=== PATIENT | male | born 1970 | race Caucasian/White ===

== ENCOUNTER 2020-01-13 16:46 | Inpatient (IN) | payer OTHER, SELFPAY ==
[2020-01-13 16:58] VITALS: BP 146/90; PULSE 104; RESP 18; TEMP 36.7; O2SAT 94; BMI 39.5
--- NOTE | 2020-01-13 17:51 | ECG_ITS ---
Measurements Intervals [place] Rate: 86 P: -13 MN: 144 QRS: 19 QRSD: 96 T: 59 QT: 348 QTc: 417 SINUS RHYTHM No previous ECG available for comparison Electronically Signed On 01-14-2020 19:04:15 CDT by Princess Brown M.D. [email or web address]
--- NOTE | 2020-01-13 17:51 | USR_ITS ---
PROCEDURE INFORMATION: Exam: US Abdomen Complete Exam date and time: 01/13/2020 6:14 PM Age: 49 years old Clinical indication: Abdominal pain; Other: Across abdomen TECHNIQUE: Imaging protocol: Real-time ultrasound of the abdomen with image documentation. COMPARISON: No relevant prior studies available. FINDINGS: Liver: The liver is echogenic with attenuation of the ultrasound beam compatible with probable fatty infiltration. Gallbladder: No gallstones or sludge are identified. There are multiple folds in the gallbladder. The gallbladder wall measures 1.8 mm in thickness. There is a negative sonographic Nunes's sign. Common bile duct: The common bile duct is not visualized due to bowel gas artifact. Pancreas: The pancreas is also partially obscured by bowel gas artifact but the visualized pancreas is mildly echogenic compatible probable fatty infiltration but otherwise unremarkable. Right kidney: The right kidney is unremarkable and measures 13.4 cm in length. There are no stones or hydronephrosis. Left kidney: The left kidney is unremarkable and measures 11.9 cm in length. Spleen: The spleen is unremarkable and measures 11.9 cm in length. Probable calcified granulomas are noted in the spleen. Aorta: The aorta is obscured by bowel gas artifact. Inferior vena cava: The inferior vena cava is unremarkable. Intraperitoneal space: No free fluid. US/US abdomen complete* [id number] IMPRESSION: 1. No acute abnormality. There is no cholelithiasis or findings of acute cholecystitis. 2. There is bowel gas artifact which limits the visualization of the common bile duct and aorta. 3. Probable fatty infiltration liver.
--- NOTE | 2020-01-13 17:53 | ED_ITS ---
HPI - Abdominal Pain General: Chief Complaint: Abdominal Pain Stated Complaint: abd pain and distention, N/V Time Seen by Provider: 01/13/20 17:47 History of Present Illness: HPI narrative: Angelo is a nice 49-year-old male who comes in complaining of upper abdominal pain. His pain began this morning upon awakening. He said associated nausea and vomiting. He has vomited 3 times. He continues to feel nauseated. His pain is described as a dull aching pain and it is intermittent. He is unaware of anything that makes his symptoms better or worse. He is not tried any food or drink secondary to his persistent nausea. He denies any chest pain or shortness of breath, fevers or chills, cough or shortness of breath. He denies any ill contacts. Patient does say that he gets relief of his pain when he vomits but the nausea is persistent. Associated Symptoms: Reports nausea and vomiting; Denies chills, coffee ground emesis, constipation, GI cramping, diarrhea, dysu sonya, fever(s), heartburn, hematochezia, hematuria, hematemesis, melena and syncope Review of Systems Const: Denies: fever(s), chills, body aches, fatigue, malaise or diaphoresis Eyes: Denies: change in vision, blurry vision, blind spots or photophobia ENMT: Denies: throat pain, odynophagia, hoarseness, swelling of lips/tongue, ear or mastoid pain, ear discharge, change in hearing or nasal discharge Card: Denies: chest pain, palpitations, irregular heart rhythm, edema, lightheadedness, syncope, pre-syncope, dyspnea on exertion or orthopnea Resp: Denies: dyspnea, productive cough, non-productive cough, wheezing, hemoptysis or chest congestion GI: Reports: abdominal pain, nausea and vomiting; Denies: hematemesis, coffee ground emesis, heartburn, diarrhea, constipation, GI cramping, hematochezia or melena : Denies: flank pain, dysuria, urinary frequency, urinary urgency or hematuria Musc: Denies: neck pain, back pain, extremity pain, extremity swelling, joint pain, joint swelling, joint redness, joint warmth or joint stiffness Skin/Breast: Denies: rash, pruritus, erythema, skin tenderness or jaundice Neuro: Denies: headache(s), numbness in extremities, weakness in extremities, sensory changes, lack of coordination, difficulty walking, dizziness, vertigo, confusion or Slurred speech present Margarito/Lymph: Denies: easy bruising, easy bleeding, petechiae, purpura or enlarged lymph nodes All/Imm: Denies: urticaria, throat swelling, tongue swelling, facial swelling or acute wheezing PFSH ED PFSH: Medical History Anxiety Obesity Obstructive sleep apnea Surgical History H/O neck surgery H/O shoulder surgery Family History Denies family history of Diabetes Dementia Psychiatric illness Social History (Updated 01/13/20 @ 22:12 by Princess Mendoza MD) Smoking and tobacco status: current every day smoker cigarettes Alcohol intake: never Substance/Drug Use: never Household members: spouse Housing: House Physical Exam Const: COMMON NORMALS: no acute distress, patient oriented x3, no limitations, healthy appearing and well nourished GENERAL APPEARANCE: cooperative, well kempt and well developed HENMT: COMMON NORMALS: normocephalic, atraumatic, external ears normal, EAC's normal and Normal external nose present HEAD & SCALP: normal to inspection, normocephalic and atraumatic FACE & SINUS: normal facial exam and face symmetric NOSE: Normal external nose present and Normal nares present EXTERNAL EAR: Yes external ears normal EXTERNAL AUDITORY CANAL: EAC's normal MOUTH: Normal oral and palatal mucosa present, lip normal and tongue normal Eye: COMMON NORMALS: Equal, round and reactive pupils present and conjunctivae normal GENERAL EYE: appearance normal, both eyes and all related structures ALIGNMENT: Yes alignment normal PERIORBITAL: periorbital findings normal EYELID: eyelids normal CONJUNCTIVA: Yes conjunctivae normal SCLERA: sclerae normal PUPIL: Yes Equal, round and reactive pupils present Neck/C-Spine: COMMON NORMALS: full ROM, no lymphadenopathy, supple, no meningeal signs and no JVD GENERAL: Yes normal visual inspection and Yes trachea midline Chest: COMMONS NORMALS: normal inspection of the chest and normal palpation of entire chest wall Resp: COMMON NORMALS: normal respiratory effort, No retractions and No use of accessory muscles EFFORT & INSPECTION: Yes able to speak in complete sentences and Yes symmetric chest movement AUSCULTATION: no crackles, no rales, no rhonchi and no wheezes Cardio: COMMON NORMALS: no JVD, regular rate, regular rhythm, S1 normal heart sound present and S2 normal heart sound present RATE: regular rate RHYTHM: regular rhythm HEART SOUNDS: S1 normal heart sound present, S2 normal heart sound present, no click, no gallops, no murmurs, no rubs and abnormal split S2 GI: COMMON NORMALS: Soft to palpation and No hepatosplenomegaly present PALPATION: Yes Soft to palpation, No Guarding due to palpation present (GI), No Rigid due to palpation, Yes No hepatosplenomegaly present, No Hernia present, No Palpable mass present and No Pulsatile mass present : COMMON NORMALS: Yes no CVA tenderness BLADDER/KIDNEY EXAM: Yes no CVA tenderness Back/Pelvis: COMMON NORMALS: no CVA tenderness, thoracic and lumbar spine normal to inspection, no thoracic nor lumbar tenderness and thoraco-lumbar ROM normal Extremity: COMMON NORMALS: normal to inspection, full ROM, capillary refill normal, no joint enlargement, no clubbing, cyanosis or edema and no calf tenderness Neuro: COMMON NORMALS: patient oriented x3, CN's II-XII intact bilaterally, moves all extremities, no focal motor deficits and no sensory deficits noted MENINGEAL SIGNS: Yes no meningeal signs SPEECH: speech normal Psych: COMMON NORMALS: mental status grossly normal, Normal thought process present, cooperative, normal affect, speech normal and activity/motor behavior normal APPEARANCE: Yes well kempt SPEECH: Yes normal speech THOUGHT PROCESS: Normal thought process present Skin: COMMON NORMALS: no rashes or lesions noted, turgor normal, no jaundice, no petechiae and no mottling GENERAL SKIN EXAM: no rashes or lesions noted and turgor normal Course Vital Signs: Vital signs: Vital Signs Temperature 98.8 F 01/13/20 22:17 Pulse Rate 109 H 01/13/20 22:17 Respiratory Rate 24 H 01/13/20 22:17 Blood Pressure 160/91 01/13/20 22:17 Pulse Oximetry 91 01/13/20 22:17 MDM - Abdominal Pain MDM Narrative: Medical decision making narrative: Arrival -Mr. Mariel is a 49-year-old male who comes in with less than 12 hours of upper abdominal pain. His vital signs are stable other than a mild tachycardia he denies any chest pain or shortness of breath. Denies any fevers or chills or other alarming associated symptoms. The differential is considerable including atypical acute coronary syndrome, bowel obstruction, pancreatitis, gallbladder disease, ap pendicitis among many others. Elevation make my work-up at relieving his pain and evaluating for a cardiac and GI source for his symptoms. We will reevaluate and work-up and evaluate further based upon test results and response to therapy. Admission -the case was reviewed with Drs. Mendoza and Sara, they will admit and consult respectively. Patient will have NG tube placed with low intermittent s uction. It is unclear what is causing this bowel obstruction as the patient had no surgery before. Currently he has repeat abdominal exam reveals no sign of peritonitis. Lab Data: Attestation: I reviewed the patient's lab results. Labs: Lab Results 01/13/20 01/13/20 01/13/20 Range/Units 17:45 17:45 17:45 WBC 14.8 H (4.0-10.0) 10^3/ uL RBC 5.79 H (4.1-5.3) 10^6/u L Hgb 17.8 H (11.7-16.6) g/dL Hct 53.9 H (42.0-52.0) % MCV 93.1 (80-94) fL MCH 30.7 (28.0-34.0) pg MCHC 33.0 (30.0-36.0) g/dL RDW 13.4 (12.1-15.1) % Plt Count 309 (130-400) 10^3/c mm MPV 9.8 (7.4-10.4) fL Neut % (Auto) 80.4 % Lymph % (Auto) 13.0 % [place] % (Auto) 5.6 % Eos % (Auto) 0.3 % Baso % (Auto) 0.3 % Neut # (Auto) 11.9 H (1.8-7.7) 10^3/u L Lymph # (Auto) 1.9 (0.8-4.8) 10^3/u L [place] # (Auto) 0.8 (0.2-0.9) 10^3/u L Eos # (Auto) 0.0 (0.0-0.8) 10^3/u L Baso # (Auto) 0.0 (0.0-0.1) 10^3/u L Nucleated RBC % (a uto) 0 % Nucleated RBCs # 0.0 /100WBC Sodium 138 (136-145) mmol/L Potassium 4.6 (3.5-5.1) mmol/L Chloride 98 (98-107) mmol/L Carbon Dioxide 28 (22-29) mmol/L Anion Gap 16.6 (5-19) BUN 14 (6-20) mg/dL Creatinine 1.1 (0.7-1.2) mg/dL GFR Calculation 71.8 L (90-130) mL/min Glucose 101 (65-115) mg/dL Calculated Osmolal ity 282 L (285-295) mOsm/k g Lactic Acid (0.5-2.2) mmol/L Calcium 9.9 (8.5-10.5) mg/dL Total Bilirubin 0.6 (0.15-1.2) mg/dL AST 22 (0-40) U/L ALT 33 (0-41) U/L Alkaline Phosphata se 75 (40-130) IU/L Troponin T Baselin e 7 (0-15) ng/L Troponin T 120 Min you (0-15) ng/L Delta Troponin T (0-10) ABS# Total Protein 7.7 (6.6-8.7) g/dL Albumin 5.0 (3.5-5.2) g/dL Globulin 2.7 (1.3-4.6) g/dL Lipase 18 (13-60) U/L Urine Color (Yellow) Urine Appearance (CLEAR) Urine pH (5-7) Ur Specific Gravit y (1.005-1.030) Urine Protein (Negative) Urine Glucose (UA) (Normal) Urine Ketones (Negative) Urine Blood (Negative) Urine Nitrate (Negative) Urine Bilirubin (NEGATIVE) Urine Urobilinogen (Negative) mg/dL Ur Leukocyte Eva ase (Negative) Urine RBC (0-2) /hpf Urine WBC (0-5) /hpf Ur Squamous Epith Cells (0-5) Urine Bacteria (NONE) Urine Mucus 0601/13/20 01/13/20 Range/Units 20:14 20:35 21:00 WBC (4.0-10.0) 10^3/ uL RBC (4.1-5.3) 10^6/u L Hgb (11.7-16.6) g/dL Hct (42.0-52.0) % MCV (80-94) fL MCH (28.0-34.0) pg MCHC (30.0-36.0) g/dL RDW (12.1-15.1) % Plt Count (130-400) 10^3/c mm MPV (7.4-10.4) fL Neut % (Auto) % Lymph % (Auto) % [place] % (Auto) % Eos % (Auto) % Baso % (Auto) % Neut # (Auto) (1.8-7.7) 10^3/u L Lymph # (Auto) (0.8-4.8) 10^3/u L [place] # (Auto) (0.2-0.9) 10^3/u L Eos # (Auto) (0.0-0.8) 10^3/u L Baso # (Auto) (0.0-0.1) 10^3/u L Nucleated RBC % (a uto) % Nucleated RBCs # /100WBC Sodium (136-145) mmol/L Potassium (3.5-5.1) mmol/L Chloride (98-107) mmol/L Carbon Dioxide (22-29) mmol/L Anion Gap (5-19) BUN (6-20) mg/dL Creatinine (0.7-1.2) mg/dL GFR Calculation (90-130) mL/min Glucose (65-115) mg/dL Calculated Osmolal ity (285-295) mOsm/k g Lactic Acid 1.8 (0.5-2.2) mmol/L Calcium (8.5-10.5) mg/dL Total Bilirubin (0.15-1.2) mg/dL AST (0-40) U/L ALT (0-41) U/L Alkaline Phosphata se (40-130) IU/L Troponin T Baselin e (0-15) ng/L Troponin T 120 Min you 6.91 (0-15) ng/L Delta Troponin T -0.09 L (0-10) ABS# Total Protein (6.6-8.7) g/dL Albumin (3.5-5.2) g/dL Globulin (1.3-4.6) g/dL Lipase (13-60) U/L Urine Color Yellow (Yellow) Urine Appearance Clear (CLEAR) Urine pH 7 (5-7) Ur Specific Gravit y 1.010 (1.005-1.030) Urine Protein Neg (Negative) Urine Glucose (UA) Norm (Normal) Urine Ketones 1+ H (Negative) Urine Blood Neg (Negative) Urine Nitrate Negative (Negative) Urine Bilirubin 1+ H (NEGATIVE) Urine Urobilinogen 1 H (Negative) mg/dL Ur Leukocyte Eva ase Negative (Negative) Urine RBC 0-4 H (0-2) /hpf Urine WBC 0-4 H (0-5) /hpf Ur Squamous Epith Cells 0-4 H (0-5) Urine Bacteria Trace (NONE) Urine Mucus 1+ EKG Data ^: EKG 1: Attestation: I personally reviewed and interpreted this EKG as follows: EKG interpretation date: 01/13/20 EKG interpretation time: 18:27 Interpretation: Normal sinus rhythm at 86 beats a minute, incomplete right bundle branch block, no acute ST or T wave changes. EKG 2: Attestation: I personally reviewed and interpreted this EKG as follows: EKG interpretation date: 01/13/20 EKG interpretation time: 20:25 Interpretation: Normal sinus rhythm at 95 beats a minute, no acute ST or T wave changes. Discharge Plan Discharge Patient Disposition: Admitted As Inpatient Admit Provider: Princess Mendoza Clinical Impression: Partial small bowel obstruction Condition: Stable Discharge Date/Time: 01/13/20 22:34 Coding Level of Care Code ED Agile Scrum Coach for Chg Fwd Exam Comprehensive
[2020-01-13 17:55] LABS: Basophils % 0.3 %; Eosinophils % 0.3 %; Hematocrit 53.9 % (42.0-52.0); Hemoglobin 17.8 g/dL (11.7-16.6); Lymphocytes # 1.9 10^3/uL (0.8-4.8); Mean Corpuscular Hemoglobin 30.7 pg (28.0-34.0); Mean Corpuscular Volume 93.1 fL (80-94); Mean Platelet Volume 9.8 fL (7.4-10.4); Monocytes # 0.8 10^3/uL (0.2-0.9); Monocytes % 5.6 %; Neutrophils # 11.9 10^3/uL (1.8-7.7); Neutrophils % 80.4 %; Nucleated Red Blood Cells % 0 %; Platelet Count 309 10^3/cmm (130-400); Red Blood Count 5.79 10^6/uL (4.1-5.3); Red Cell Distribution Width 13.4 % (12.1-15.1); White Blood Count 14.8 10^3/uL (4.0-10.0)
[2020-01-13] MEDS: morphine 4 mg/mL SDV 1 mL IVP (18:03)
[2020-01-13] MEDS: ondansetron 2 mg/ML SDV 2 mL 4 MG IVP (18:03)
[2020-01-13 18:11] VITALS: BP 151/109; RESP 20; O2SAT 92
[2020-01-13 18:15] LABS: Alanine Aminotransferase 33 U/L (0-41); Alkaline Phosphatase 75 IU/L (40-130); Anion Gap 16.6 (5-19); Aspartate Amino Transferase 22 U/L (0-40); Blood Urea Nitrogen 14 mg/dL (6-20); Calcium 9.9 mg/dL (8.5-10.5); Carbon Dioxide 28 mmol/L (22-29); Chloride 98 mmol/L (98-107); Globulin 2.7 g/dL (1.3-4.6); Glomerular Filtration Rate 71.8 mL/min (90-130); Glucose 101 mg/dL (65-115); Lipase 18 U/L (13-60); Osmolality Calculated 282 mOsm/kg (285-295); Potassium 4.6 mmol/L (3.5-5.1); Sodium 138 mmol/L (136-145); Total Bilirubin 0.6 mg/dL (0.15-1.2); Total Protein 7.7 g/dL (6.6-8.7)
[2020-01-13 18:19] LABS: Troponin(5th) Baseline 7 ng/L (0-15)
--- NOTE | 2020-01-13 18:53 | CTR_ITS ---
PROCEDURE INFORMATION: Exam: CT Abdomen And Pelvis With Contrast Exam date and time: 01/13/2020 7:24 PM Age: 49 years old Clinical indication: Abdominal pain; Localized; Patient HX: C/O upper abd pain w n/v and distention TECHNIQUE: Imaging protocol: Computed tomography of the abdomen and pelvis with intravenous contrast. Radiation optimization: All CT scans at this facility use at least one of these dose optimization techniques: automated exposure control; mA and/or kV adjustment per patient size (includes targeted exams where dose is matched to clinical indication); or iterative reconstruction. Contrast material: OMNI 350; Contrast volume: 95 ml; Contrast route: 18G; COMPARISON: US abdomen complete* [id number] 01/13/2020 6:28 PM RADIATION DOSE METRICS: Total DLP: 2051.6 mGy-cm FINDINGS: Mediastinal space: A small hiatal hernia is present. Liver: There is a diffuse decrease in hepatic parenchymal density, consistent with fatty infiltration. Gallbladder and bile ducts: Normal. No calcified stones. No ductal dilation. Pancreas: Normal. No ductal dilation. Spleen: There is a probable hemangioma in the spleen with peripheral enhancement measures 1.6 cm in size. Adrenals: Normal. No mass. Kidneys and ureters: There is no evidence of hydronephrosis. There is punctate right nephrolithiasis. Stomach and bowel: There are dilated loops of small bowel with air-fluid levels compatible with a mild partial small bowel obstruction. The greatest transverse measurement of the dilated loops of small bowel is 4.7 cm. The stomach is distended with fluid and air. There is no bowel thickening. No inflammatory changes. The dilated loops of small bowel have an abrupt caliber change suggestive of adhesions. No wall thickening. Appendix: A normal appendix is identified. Intraperitoneal space: There is no pneumatosis or free air. Vasculature: Unremarkable.No abdominal aortic aneurysm. Lymph nodes: Unremarkable.No enlarged lymph nodes. Bladder: There is nonspecific bladder wall thickening. This may be related to incomplete distention. Reproductive: The prostate demonstrates mild nonspecific enlargement. The seminal vesicles are normal. Bones/joints: There are moderate degenerative changes in the spine. No acute bony abnormality. Soft tissues: There is a nonobstructing left inguinal hernia. CT/CT abdomen pelvis w con* [id number] IMPRESSION: Partial small bowel obstruction with abrupt transition zone suspected to be due to adhesions. No fluid collection or free air. Radiation Dose CTDIVOL = (mGy): DLP = 2051.6 (mGy-cm)
[2020-01-13] MEDS: iohexol 300 mg/mL 100 mL Btl IV (19:50)
--- NOTE | 2020-01-13 19:51 | ECG_ITS ---
Measurements Intervals [place] Rate: 95 P: 63 ME: 153 QRS: 42 QRSD: 101 T: 63 QT: 333 QTc: 419 SINUS RHYTHM No previous ECG available for comparison Electronically Signed On 01-14-2020 19:07:02 CDT by Princess Brown M.D. [id number]
--- NOTE | 2020-01-13 20:16 | XRR_ITS ---
PROCEDURE INFORMATION: Exam: XR Chest, 1 View Exam date and time: 01/13/2020 9:42 PM Age: 49 years old Clinical indication: Device placement; Ng tube; Patient HX: Sbo - ng placement; Additional info: Ng tube placement TECHNIQUE: Imaging protocol: XR of the chest Views: 1 view. COMPARISON: No relevant prior studies available. FINDINGS: Tubes, catheters and devices: There is an orogastric tube with tip off the film. Lungs: There is shallow inspiration with bibasilar volume loss. There is mild vascular congestion/interstitial edema. No lobar consolidation. Pleural space: Unremarkable. No pleural effusion. No pneumothorax. Heart/Mediastinum: The heart is enlarged. Bones/joints: No acute abnormality. XR/XR chest 1V portable [id number] IMPRESSION: 1. There is an orogastric tube with tip off the film. 2. There is shallow inspiration with bibasilar volume loss. Mild vascular congestion.
[2020-01-13 20:36] LABS: Troponin 5 2HR 6.91 ng/L (0-15)
[2020-01-13 20:43] VITALS: BP 152/99; PULSE 96; RESP 20; O2SAT 95
[2020-01-13 20:43] LABS: Troponin 5 2HR Delta -0.09 ABS# (0-10)
[2020-01-13 21:08] LABS: Bilirubin Urine 1+ (NEGATIVE); Blood Urine Neg (Negative); Glucose Urine UA Norm (Normal); Ketones Urine 1+ (Negative); Leukocyte Esterase Urine Negative (Negative); Nitrate Urine Negative (Negative); Protein Urine Neg (Negative); RBC Urine 0-4 /hpf (0-2); Urine Appearance Clear (CLEAR); Urine Color Yellow (Yellow); Urobilinogen Urine 1 mg/dL (Negative); WBC Urine 0-4 /hpf (0-5); pH Urine 7 (5-7)
--- NOTE | 2020-01-13 21:08 | P.HP_ITS ---
Providers/Chief Complaint Chief Complaint: n/v, upper abd pain History of Present Illness Angelo Floyd is a 49 year old male who does not have significant past medical history came in with chief complaint of epigastric discomfort. Patient denies any previous abdominal surgeries. He uses BiPAP for his sleep apnea, he is visiting [place]. Today around 9 AM after eating [employer] breakfast he started experiencing excessive burping, epigastric discomfort, this was associated with recurrent episodes of bilious emesis, he was not able to take anything down. He decided to come to ED for the further evaluation. Diagnostics in the ER revealed partial small bowel obstruction. Lactic acid is normal. NG tube was placed which drained 300 to 400 cc in half an hour. Patient is endorsing passing flatus, he has never experienced small obstruction before, no history of inflammatory bowel disease. He is denying night sweats, weight loss or family history of GI cancers. Hemodynamically he is stable, afebrile, normal lactic acid, CT revealing partial bowel obstruction with abrupt transition point, EKG showing sinus rhythm, No signs of peritonitis on clinical exam Review of Systems Const: Denies: fever(s), chills or body aches Eyes: Denies: change in vision ENMT: Denies: throat pain Card: Denies: chest pain Resp: Denies: dyspnea GI: Reports: abdominal pain, nausea, vomiting, early satiety and bloating; Denies: diarrhea or constipation : Denies: flank pain Musc: Denies: neck pain Skin/Breast: Denies: rash Neuro: Denies: headache(s) Psych: Reports: anxiety and depression Endo: Denies: polyuria Margarito/Lymph: Denies: easy bruising All/Imm: Denies: urticaria Medications/Allergies Home Medications Medication Instructions Recorded Confirmed Last Taken Type Gas-X See Rx Instructions .ROUTE .COMPLEX 01/13/20 01/13/20 01/13/20 History aripiprazole 7.5 mg PO DAILY 01/13/20 01/13/20 01/12/20 History bupropion HCl 150 mg PO DAILY 01/13/20 01/13/20 01/12/20 History duloxetine 60 mg PO DAILY 01/13/20 01/13/20 01/12/20 History lamotrigine 50 mg PO BID 01/13/20 01/13/20 01/12/20 History Allergies Allergy/AdvReac Type Severity Reaction Status Date / Time No Known Allergies Allergy Verified 01/13/20 17:02 PFSH Acute PFSH: Medical History Anxiety Obesity Obstructive sleep apnea Surgical History H/O neck surgery H/O shoulder surgery Family History Denies family history of Diabetes Dementia Psychiatric illness Social History Smoking and tobacco status: current every day smoker cigarettes Alcohol intake: never Substance/Drug Use: never Household members: spouse Housing: House Vitals/I&O/Wt Last Vital Signs Temp 98.0 F 01/13/20 16:58 Pulse 96 01/13/20 20:43 Resp 20 H 01/13/20 20:43 BP 152/99 01/13/20 20:43 Pulse Ox 95 01/13/20 20:43 Weight last 48 hrs Weight 136.078 kg Physical Exam Narrative: EXAM NARRATIVE: Head to toe examination Patient sitting comfortably in his bed with nasogastric tube draining 300 400 cc bilious content No active bleeding Patient is able to provide above-mentioned HPI S1, S2 sinus tachycardia Hypertension Abdomen soft nontender nondistended bowel sounds sluggish but present No signs of peritonitis Lungs are clear to auscultation Neurological nonfocal exam EOMI, PERRLA No lower extremity edema No signs of dehydration Data : 01/13/20 17:45 01/13/20 17:45 A&P Assessment and plan (1) Partial small bowel obstruction: Status: Acute (2) Obesity: Status: Acute (3) Leukocytosis: Status: Acute Additional A&P Information Partial small obstruction acute onset No previous history of surgery No history of family GI cancer No active signs of peritonitis Patient is able to pass flatus NG tube draining 300-400 cc bilious content KUB in the morning Conservative management General surgery consult Leukocytosis without active sepsis at admission He is dehydrated as well he is tachycardic with distress leukocytosis, he is afebrile, no source of infection 95 Heart rate responsive to fluid resuscitation, Obesity with severe apnea requiring BiPAP Would avoid using BiPAP for now because of current NG tube usage Chronic smoker: Patient had decided to quit, not asking for nicotine replacement therapy at the moment Depression/anxiety: Hold antidepressant Full code DVT prophylaxis: Would avoid if he needs any surgical intervention N.p.o. Attestations Medical Necessity Statement*: Anticipating stay in the hospital cross more than 2 midnights currently needs conservative management for partial small obstruction, hospital course depends on his clinical progress Time Spent in Patient Care: 60 Coding Level of Care Code Acute Building Equipment Inspector for g Fwd Diagnoses Partial small bowel obstruction K56.600 Obesity E66.9 Leukocytosis D72.829
[2020-01-13 21:09] LABS: Add Urine Culture? No; Bacteria Urine TRACE; Mucus Urine 1+; Squamous Epithelial Cell Urine 0-4 (0-5)
[2020-01-13 21:22] LABS: Lactic Sepsis W/Reflex 1.8 mmol/L (0.5-2.2)
[2020-01-13 22:17] VITALS: BP 160/91; PULSE 109; RESP 24; TEMP 37.1; O2SAT 91
[2020-01-13] MEDS: dextrose 5%-sod chloride 0.45% 1,000 ML 75 ML IV (22:47)
[2020-01-14] VITALS (7 sets, daily range): BP systolic 125–158; BP diastolic 73–83; PULSE 67–91; RESP 18–20; TEMP 36.8–37.2; O2SAT 92–95
[2020-01-14 00:01] LABS: Troponin 5 6HR 7.36 ng/L (0-15); Troponin 5 6HR Delta 0.36 ng/L (0-12)
[2020-01-14 05:29] LABS: Basophils % 0.1 %; Eosinophils % 0.4 %; Hematocrit 45.5 % (42.0-52.0); Lymphocytes # 2.4 10^3/uL (0.8-4.8); Lymphocytes % 23.6 %; Mean Corpuscular Hemoglobin 31.1 pg (28.0-34.0); Mean Corpuscular Volume 94.2 fL (80-94); Mean Platelet Volume 9.6 fL (7.4-10.4); Monocytes # 0.8 10^3/uL (0.2-0.9); Monocytes % 7.5 %; Neutrophils % 68.1 %; Nucleated Red Blood Cells % 0 %; Platelet Count 248 10^3/cmm (130-400); Red Blood Count 4.83 10^6/uL (4.1-5.3); Red Cell Distribution Width 13.7 % (12.1-15.1); White Blood Count 10.2 10^3/uL (4.0-10.0)
[2020-01-14 05:44] LABS: Blood Urea Nitrogen 12 mg/dL (6-20); Calcium 9.3 mg/dL (8.5-10.5); Carbon Dioxide 29 mmol/L (22-29); Chloride 101 mmol/L (98-107); Glomerular Filtration Rate 90.4 mL/min (90-130); Glucose 120 mg/dL (65-115); Osmolality Calculated 287 mOsm/kg (285-295); Sodium 140 mmol/L (136-145)
--- NOTE | 2020-01-14 07:00 | XRR_ITS ---
PROCEDURE INFORMATION: Exam: XR Abdomen, 1 View Exam date and time: 01/14/2020 7:55 AM Age: 49 years old Clinical indication: Abdominal pain; Additional info: Partial small bowel obstruction TECHNIQUE: Imaging protocol: XR of the abdomen. Views: Frontal supine view of the abdomen. 1 View. COMPARISON: CT ABDOMEN/PELVIS 01/13/2020 7:41 PM FINDINGS: Tubes, catheters and devices: There is an enteric tube present with the tip in the gastric fundus. Gastrointestinal tract: No dilated gas-filled loops of bowel. Bones/joints: No acute osseous abnormality. XR/XR KUB [id number] IMPRESSION: No sign of bowel obstruction.
--- NOTE | 2020-01-14 07:18 | P.CONIM_ITS ---
Providers/Reason For Consult Consulting Physican/Specialty*: General Surgery Ochoa Ruiz MD Reason for Consult*: Small bowel obstruction. Attending Physician: Princess Mendoza MD History of Present Illness History of Present Illness Angelo Floyd is a 49 year old male who awoke yesterday morning with some epigastric discomfort. He initially thought that he was just somewhat distended and sore from wearing his BiPAP mask during the night. He ate breakfast and the pain intensified. He ended up having multiple episodes of emesis. He came to the emergency room and a CAT scan showed changes consistent with a possible small bowel obstruction. The patient has no history of any abdominal surgery. The patient has never had this happen to him before. He has not eaten anything out of the ordinary recently, and those around him who have eaten the same things did not become ill. He says he never did stop passing flatus and he has continued to pass flatus in the hospital. He says he was actually already starting to feel better by the time the nasogastric tube was placed last night. He says his bowel function has been completely normal for him recently. He has never had a colonoscopy. He has no known family history of any intestinal problems. Review of Systems General: Reports: 10 or more systems reviewed and unremarkable except in HPI and below Const: Denies: fever(s) Psych: Reports: depression Meds/Allergies Home Medications and Allergies Home Medications Medication Instructions Recorded Confirmed Last Taken Type Gas-X See Rx Instructions .ROUTE .COMPLEX 01/13/20 01/13/20 01/13/20 History aripiprazole 7.5 mg PO DAILY 01/13/20 01/13/20 01/12/20 History bupropion HCl 150 mg PO DAILY 01/13/20 01/13/20 01/12/20 History duloxetine 60 mg PO DAILY 01/13/20 01/13/20 01/12/20 History lamotrigine 50 mg PO BID 01/13/20 01/13/20 01/12/20 History Allergies Allergy/AdvReac Type Severity Reaction Status Date / Time No Known Allergies Allergy Verified 01/13/20 17:02 Current Medications Current Medications Generic Name Dose Route Start Last Admin Trade Name Freq PRN Reason Stop Dose Admin Dextrose/Sodium Chloride 1,000 mls @ 150 mls/hr 01/13/20 22:30 01/13/20 22:47 Dextrose 5%-Sod Chloride 0.45% IV 75 mls/hr .Q6H40M HONORIO Administration PFSH Acute PFSH: Medical History (Updated 01/14/20 @ 07:22 by Ochoa Ruiz MD) Anxiety Depression Obesity Obstructive sleep apnea Surgical History (Updated 01/14/20 @ 07:22 by Ochoa Ruiz MD) H/O neck surgery Removal of a cyst from the right side of the neck; they had to reoperate on it like 7 times because it kept coming back H/O shoulder surgery Right History of hand surgery Right hand fifth digit tendon repair secondary to trauma Family History Denies family history of Diabetes Dementia Psychiatric illness Social History (Updated 01/14/20 @ 07:23 by Ochoa Ruiz MD) Smoking and tobacco status: current every day smoker cigarettes Packs smoked per day: 1 Years cigarettes smoked: 35 Alcohol intake: current Alcohol use comment: Seldom Substance/Drug Use: never Household members: spouse Housing: House Vitals/I&O/Wt Last Vital Signs Temp 99.0 F 01/14/20 04:13 Pulse 89 01/14/20 04:13 Resp 20 H 01/14/20 04:13 BP 137/81 01/14/20 04:13 Pulse Ox 93 01/14/20 04:13 01/13/20 01/14/20 01/14/20 22:59 06:59 14:59 Output Total 680 / 680 Balance -680 / -680 Weight last 48 hrs Weight 300 lb Physical Exam Narrative: EXAM NARRATIVE: The patient was encountered in his hospital room. He has a nasogastric tube in place that has been draining dark brown material, but nothing appears to be continuously draining now. The pupils are equal. No carotid bruits are heard. The lungs are clear anteriorly. The heart is regular. The abdomen is obese but is soft and completely nontender. Bowel sounds are present but may be slightly hypoactive. No abdominal scars are noted. The extremities reveal no significant edema. Neurologically the patient appears to be grossly intact. Data Imaging^: CT Abd/Pel: Radiologist's impression: CT abdomen/pelvis 01/13/2020 iMPRESSION: Partial small bowel obstruction with abrupt transition zone suspected to be due to adhesions. No fluid collection or free air. A&P Assessment and plan (1) Partial small bowel obstruction: CT reviewed. The patient appears to have somewhat of a transition point in the epigastrium just to the left side of midline. He has air throughout his colon. The patient is feeling much better this morning. He continues to pass flatus. I am going to clamp his NG tube and see how he does over the next few hours. Status: Acute Consult Attestations Medical Necessity Statement: See admitting service's notation. 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
--- NOTE | 2020-01-14 07:48 | PC.NURSE ---
Verbal order received from Dr. Ruiz to clamp NG tube, tube clamped at [id number]
[2020-01-14] MEDS: pantoprazole 40 mg SDV IVP (08:56)
[2020-01-14] MEDS: heparin 5,000 unit/mL INJ 1 mL 5000 UNIT SUBCUT ×2 (08:56→20:07)
[2020-01-14] MEDS: phenol oral Spray 177 mL 3 SPRAY MUCOUS MEM (09:44)
--- NOTE | 2020-01-14 10:41 | P.PN_ITS ---
Subjective Subjective: Interval history: Admitted overnight. H&P and labs noted. Today morning patient was not having any nausea, vomiting and was passing flatus so NG tube was clamped. Patient was seen by Dr. Ruiz. Since clamping of NG tube patient has not had any further nausea or vomiting. He denies of having any chest pain, diarrhea, fever, palpitations. Vitals/I&O/Wt Last Vital Signs Temp 98.4 F 01/14/20 07:27 Pulse 90 01/14/20 07:27 Resp 20 H 01/14/20 07:27 BP 135/77 01/14/20 07:27 Pulse Ox 93 01/14/20 07:27 01/13/20 01/14/20 01/14/20 22:59 06:59 14:59 Output Total 680 / 680 Balance -680 / -680 Weight last 48 hrs Weight 136.078 kg Physical Exam Narrative: EXAM NARRATIVE: General: Mild distress because of NG tube, AO x3, NG tube placed HEENT: PERRLA, pupils bilaterally equal and reactive Chest: Normal vesicular breath sounds, no added sounds, equal good air entry bilaterally CVS: S1-S2 regular, no murmurs, no tachycardia, no gallops, no rubs Abdomen: Soft, nontender, no organomegaly, bowel sounds sluggish Neuro: No focal deficits, no facial deformity, AO x3, power 5/5 in all limbs Data : 01/14/20 05:19 01/14/20 05:19 A&P Assessment and plan (1) Partial small bowel obstruction: Status: Acute (2) Obesity: Status: Acute (3) Leukocytosis: Status: Acute (4) Obstructive sleep apnea: Status: Acute Additional A&P Information Partial small obstruction: Acute onset: No history of previous surgery, gastric cancer. Patient has not had any colonoscopy or EGD in the past. Patient is passing flatus. No bowel movements. No nausea or vomiting since NG tube has been clamped. Appreciate Dr. Ruiz's recommendations. Case discussed with Dr. Ruiz. Plan to connect the NG tube to gravity and measured the output. If not much then will start patient on clear liquid diet and monitor for nausea and vomiting. Zofran for vomiting, Protonix IV. Keep n.p.o. for now will advance the diet accordingly. Leukocytosis without active sepsis at admission: Most likely because of stress. Resolving. We will hold on any antibiotics for now as leukocytosis is resolving and patient does not had any fever. Morbid obesity with obstructive sleep apnea. BiPAP at night if no NG tube in place. Chronic smoker: Patient had decided to quit, not asking for nicotine replacement therapy at the moment Depression/anxiety: Hold antidepressant Full code DVT prophylaxis: SCDs N.p.o. Attestations Medical Necessity Statement*: Small bowel obstruction Time Spent in Patient Care: Greater than 35 minutes Coding Level of Care Code Acute Animal Therapist for [facility] Fwd Diagnoses Partial small bowel obstruction K56.600 Obesity E66.9 Leukocytosis D72.829 Obstructive sleep apnea G47.33
[2020-01-14] MEDS: dextrose 5%-sod chloride 0.45% 1,000 ML 75 ML IV ×2 (11:12→17:33)
--- NOTE | 2020-01-14 12:15 | PC.NURSE ---
Ng tube hooked back up to suction per Dr. Ruiz, 50mL noted to come out at that time, no more output since. He was hooked back up to suction for approximately 45minutes. Dr. Ruiz gave telephone orders to discontinue NG tube and start pt on clear liquids. Pt stated while in room that he was feeling well and was passing gas.
--- NOTE | 2020-01-14 18:16 | PC.NURSE ---
Pt has done well this shift, NG tube was discontinued after only having 50ml output and being clamped. pt tolerated clear liquids well at lunch and tolerated gi soft diet at supper as well. he has had no complaints of pain or n/v. he has passed gas multiple times this shift.
[2020-01-15 00:35] VITALS: BP 129/80; PULSE 85; RESP 17; TEMP 36.6; O2SAT 96
[2020-01-15] MEDS: dextrose 5%-sod chloride 0.45% 1,000 ML 75 ML IV (01:11)
[2020-01-15 04:49] VITALS: BP 145/80; PULSE 74; RESP 18; TEMP 36.6; O2SAT 99
[2020-01-15 05:56] LABS: Basophils % 0.2 %; Eosinophils # 0.1 10^3/uL (0.0-0.8); Eosinophils % 0.9 %; Hematocrit 46.4 % (42.0-52.0); Hemoglobin 15.1 g/dL (11.7-16.6); Lymphocytes # 2.5 10^3/uL (0.8-4.8); Lymphocytes % 39.3 %; Mean Corpuscular HGB Conc 32.5 g/dL (30.0-36.0); Mean Corpuscular Hemoglobin 30.7 pg (28.0-34.0); Mean Corpuscular Volume 94.3 fL (80-94); Mean Platelet Volume 9.3 fL (7.4-10.4); Monocytes # 0.5 10^3/uL (0.2-0.9); Monocytes % 7.9 %; Neutrophils # 3.3 10^3/uL (1.8-7.7); Neutrophils % 51.5 %; Nucleated Red Blood Cells % 0 %; Platelet Count 213 10^3/cmm (130-400); Red Blood Count 4.92 10^6/uL (4.1-5.3); Red Cell Distribution Width 13.4 % (12.1-15.1); White Blood Count 6.4 10^3/uL (4.0-10.0)
[2020-01-15 06:12] LABS: Alanine Aminotransferase 21 U/L (0-41); Albumin Level 4.1 g/dL (3.5-5.2); Alkaline Phosphatase 59 IU/L (40-130); Anion Gap 12.6 (5-19); Aspartate Amino Transferase 14 U/L (0-40); Blood Urea Nitrogen 9 mg/dL (6-20); Calcium 8.8 mg/dL (8.5-10.5); Carbon Dioxide 27 mmol/L (22-29); Chloride 103 mmol/L (98-107); Globulin 2.5 g/dL (1.3-4.6); Glomerular Filtration Rate 90.4 mL/min (90-130); Glucose 111 mg/dL (65-115); Osmolality Calculated 285 mOsm/kg (285-295); Potassium 3.6 mmol/L (3.5-5.1); Sodium 139 mmol/L (136-145); Total Bilirubin 0.4 mg/dL (0.15-1.2); Total Protein 6.6 g/dL (6.6-8.7)
[2020-01-15 07:59] VITALS: BP 158/78; PULSE 74; RESP 20; TEMP 36.7; O2SAT 98
--- NOTE | 2020-01-15 09:09 | P.PN_ITS ---
Subjective Subjective: Interval history: The patient continued to do well following removal of his nasogastric tube yesterday. His diet was advanced and he is now tolerating solid food without any problems. He denies abdominal pain, is passing flatus, etc. Vitals/I&O/Wt Last Vital Signs Temp 98.0 F 01/15/20 07:59 Pulse 74 01/15/20 07:59 Resp 20 H 01/15/20 07:59 BP 158/78 01/15/20 07:59 Pulse Ox 98 01/15/20 07:59 01/14/20 01/15/20 01/15/20 22:59 06:59 14:59 Intake Total 1376.25 / 2940.00 572.5 / 2940.00 568.75 / 568.75 Output Total 750 / 1450 250 / 1450 500 / 500 Balance 626.25 / 1490.00 322.5 / 1490.00 68.75 / 68.75 Weight last 48 hrs Weight 300 lb Physical Exam Narrative: EXAM NARRATIVE: Abdominal exam is unremarkable. Data : 01/15/20 05:45 01/15/20 05:45 A&P Assessment and plan (1) Partial small bowel obstruction: The patient is back to normal today. I think he can be safely discharged. Status: Acute Attestations Medical Necessity Statement*: See admitting service's notation. 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
[2020-01-15 11:35] VITALS: BP 154/90; PULSE 80; RESP 18; TEMP 36.9; O2SAT 96
--- NOTE | 2020-01-15 12:22 | PC.RESP ---
SMOKING CESSATION INFORMATION SENT TO PATIENT.
[2020-01-15 12:28] VITALS: BP 154/90; PULSE 80; RESP 18; TEMP 36.9; O2SAT 96
--- NOTE | 2020-01-15 12:30 | PM.DCS ---
Discharge Providers Date of Admission: 01/13/20 21:09 Date of Discharge: January 15, 2020 Attending Provider at Admission: Princess Mendoza MD Attending Provider at Discharge: Yolanda Storm MD Primary Care Provider: Makenzie Obando NP Diagnoses at Discharge Discharge Diagnosis (1) Partial small bowel obstruction: Status: Resolved Problem details: -partial SBO on imaging -surgery consult by Dr. Ruiz appreciated -responded well to conservative management including NGT placement, removed and diet advanced as tolerated; tolerating oral intake without difficulty -f/u KUB unremarkable -VSS; leukocytosis resolved Other Information Additional DC diagnoses/information: -Morbid obesity: BMI-40 kg/m2 -Chronic smoker; smoking cessation advised and patient expresses desire to quit -MELLISSA; uses CPAP qhs Reason for Visit Reason for Visit: n/v, upper abd pain Hospital Course Hospital Course: Patient was admitted to the medical surgical floor General surgery consulted due to findings of partial small bowel obstruction with noted transition point on imaging. Patient had an NG tube placed and supportive care including antiemetics, pain control, bowel rest and IV fluid hydration. He responded quite well to conservative management, NG tube was subsequently removed with decreasing output and symptomatic improvement and patient's oral intake has been advanced as tolerated. As of today he has been able to tolerate solids without difficulty with no noted nausea, vomiting or abdominal pain. He is counseled on need to have small frequent meals for at least 1 to 2 days before resuming regular diet to allow for appropriate recovery. Smoking cessation has been recommended and patient expresses desire to quit smoking. He has a follow-up appointment with his primary care provider later this afternoon which he is advised to keep. He is to seek medical attention immediately should any of his symptoms return. He is to continue using CPAP at night due to obstructive sleep apnea. Discharge Summary: -Patient to follow up with primary care provider Makenzie Obando today at 1530 Physical Exam Const: COMMON NORMALS: no acute distress and patient oriented x3 GENERAL APPEARANCE: cooperative and comfortable NUTRITIONAL APPEARANCE: obese morbidly obese ORIENTATION/CONSCIOUSNESS: Yes awake HENMT: COMMON NORMALS: normocephalic, atraumatic, hearing grossly normal bilaterally and moist oral mucous membranes HEAD & SCALP: normocephalic and atraumatic Eye: COMMON NORMALS: Equal, round and reactive pupils present, EOMs intact bilaterally and conjunctivae normal CONJUNCTIVA: Yes conjunctivae normal PUPIL: Yes Equal, round and reactive pupils present Neck/C-Spine: COMMON NORMALS: full ROM GENERAL: Yes normal visual inspection and Yes trachea midline Resp: COMMON NORMALS: normal respiratory effort, No retractions, No use of accessory muscles and clear to auscultation bilaterally EFFORT & INSPECTION: Yes able to speak in complete sentences, Yes symmetric chest movement and No tachypneic AUSCULTATION: clear to auscultation bilaterally Cardio: COMMON NORMALS: regular rate, regular rhythm, S1 normal heart sound present, S2 normal heart sound present and No murmurs present (Cardio) RATE: regular rate RHYTHM: regular rhythm HEART SOUNDS: S1 normal heart sound present and S2 normal heart sound present GI: COMMON NORMALS: Normal to inspection, nondistended, normoactive bowel sounds present, Soft to palpation and non-tender INSPECTION: Yes central obesity PALPATION: Yes Soft to palpation Extremity: COMMON NORMALS: normal to inspection, full ROM, no clubbing, cyanosis or edema and no pedal edema Neuro: COMMON NORMALS: patient oriented x3, moves all extremities, no focal motor deficits, no sensory deficits noted and gait normal Psych: COMMON NORMALS: mental status grossly normal, Normal thought process present, cooperative, normal affect and speech normal SPEECH: Yes normal speech THOUGHT PROCESS: Normal thought process present Skin: COMMON NORMALS: no rashes or lesions noted, no jaundice, no petechiae and no mottling GENERAL SKIN EXAM: no rashes or lesions noted Discharge Data Data Completed and Pending: Completed Studies During Hospitalization Category Date Time Status CT abdomen pelvis w con* [id number] Stat Cat Scan 01/13/20 18:53 Completed XR KUB [id number] Rout ine Exams 01/14/20 07:00 Completed XR chest 1V evens ble [id number] Stat Exams 01/13/20 20:16 Completed US abdomen comple te* [id number] Urgent Ultrasound 01/13/20 17:51 Completed Labs from last 24 hours 01/15/20 01/15/20 05:45 05:45 WBC 6.4 RBC 4.92 Hgb 15.1 Hct 46.4 MCV 94.3 H MCH 30.7 MCHC 32.5 RDW 13.4 Plt Count 213 MPV 9.3 Neut % (Auto) 51.5 Lymph % (Auto) 39.3 Dickey % (Auto) 7.9 Eos % (Auto) 0.9 Baso % (Auto) 0.2 Neut # (Auto) 3.3 Lymph # (Auto) 2.5 Dickey # (Auto) 0.5 Eos # (Auto) 0.1 Baso # (Auto) 0.0 Nucleated RBC % (a uto) 0 Nucleated RBCs # 0.0 Sodium 139 Potassium 3.6 Chloride 103 Carbon Dioxide 27 Anion Gap 12.6 BUN 9 Creatinine 0.9 GFR Calculation 90.4 Glucose 111 Calculated Osmolal ity 285 Calcium 8.8 Total Bilirubin 0.4 AST 14 ALT 21 Alkaline Phosphata se 59 Total Protein 6.6 Albumin 4.1 Globulin 2.5 Vitals: Last Vital Signs Temp 98.4 F 01/15/20 12:28 Pulse 80 01/15/20 12:28 Resp 18 01/15/20 12:28 BP 154/90 01/15/20 12:28 Pulse Ox 96 01/15/20 12:28 Discharge Plan Discharge Patient Disposition: Home, Self-Care Condition: Stable Prescriptions: New Senna with Docusate Sodium 8.6-50 mg tablet 1 tab-cap PO BID 30 Days Qty: 60 RF: 0 Continued lamotrigine 25 mg tablet 50 mg PO BID RF: 0 bupropion HCl 75 mg tablet 150 mg PO DAILY RF: 0 aripiprazole 15 mg tablet 7.5 mg PO DAILY RF: 0 duloxetine 60 mg capsule,delayed release(DR/EC) 60 mg PO DAILY RF: 0 Gas-X See Rx Instructions .ROUTE .COMPLEX RF: 0 Discharge Orders: Discharge Order (Routine); Ordered 01/15/20 Ordered By: Yolanda Storm Referrals: Makenzie Obando [employer] FLOOR INSTALLER [Other] - 01/15/20 3:30 pm (Post hospital discharge follow up. Treated for partial small bowel obstruction. ) Discharge Diet: Regular Discharge Activity: Resume usual activity Patient Instructions: Laxative, Stimulant (By mouth), Leukocytosis (DC), Obesity (DC), Bowel Obstruction (DC) Activity Restrictions/Additional Instructions: Please follow up with pcp today at 330. Discharge Date/Time: 01/15/20 12:42 Discharge Attestations Time Spent in Discharge Care*: greater than 30 min Specific Discharge Activities: Specific discharge activities: educating patient, discussing with director of casework/social workers/dc planners, documenting/other paperwork and evaluating patient/reviewing data Time Spent in Smoking Cessation: Time spent discussing smoking cessation with patient: 3 to 10 minutes Details of Smoking Cessation Education: Patient expresses desire to quit. 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
== END 2020-01-15 12:42 | disposition home or self-care (01) | DRG 390 ==
LOC: ER 21:18 → MEDSURG 21:35
PROVIDERS: Emergency Medicine; Student in an Organized Health Care Education/Training Program; Admitting Provider Internal Medicine; Visit Provider Family Medicine
DX: K56.600 Partial intestinal obstruction, unspecified as to cause (principal); G47.33 Obstructive sleep apnea (adult) (pediatric); E66.01 Morbid (severe) obesity due to excess calories; Z68.39 Body mass index [BMI] 39.0-39.9, adult; E86.0 Dehydration; F17.210 Nicotine dependence, cigarettes, uncomplicated; F41.8 Other specified anxiety disorders
CPT/HCPCS: 12345; 36415; 71045; 74018; 74177; 76700; 80048; 80053; 81001; 83605; 83690; 84484; 85025; 93005; 94660; 96372; 96375; 99283; C9113; J1644; J2270; J2405; J7799; Q9967